=== PATIENT | female | born 1990 | race Caucasian/White ===

== ENCOUNTER 2018-04-11 09:26 | Emergency (ER) | payer OTHER ==
[2018-04-11 10:33] VITALS: BP 140/85
--- NOTE | 2018-04-11 10:36 | UC ---
Respiratory Complaint HPI - HPI Summary HPI Summary: ONSET YESTERDAY OF NASAL CONGESTION, SINUS PRESSURE, MILD SORE THROAT. SAW A WHITE SPOT ON HER RIGHT TONSIL. THROAT FEELS SWOLLEN. DENIES FEVER, NAUSEA/ VOMITING. NO HEADACHE OR VISUAL DISTURBANCES. IS CONCERNED ABOUT STREP. PATIENT IS 38 WEEKS . - History of Current Complaint Chief Complaint: UCGeneralIllness Stated Complaint: SORE THROAT HEADACHE SINUS ISSUE Time Seen by Provider: 04/11/18 10:20 Hx Obtained From: Patient Onset/Duration: Gradual Onset, Lasting Days - 1 DAY, Still Present Timing: Constant Severity Initially: Moderate Severity Currently: Moderate Pain Intensity: 2 Pain Scale Used: 0-10 Numeric Character: Cough: Nonproductive Aggravating Factors: Nothing Alleviating Factors: Nothing Associated Signs And Symptoms: Positive: URI, Nasal Congestion. Negative: Dyspnea, Fever - Allergies/Home Medications Allergies/Adverse Reactions: Allergies Allergy/AdvReac Type Severity Reaction Status Date / Time No Known Allergies Allergy Verified 04/11/18 09:35 Home Medications: Home Medications Escitalopram Oxalate [Lexapro 10 mg] 10 mg PO DAILY 04/11/18 [History Confirmed 04/11/18] PMH/Surg Hx/FS Hx/Imm Hx Previously Healthy: Yes - Surgical History Surgical History: Yes Surgery Procedure, Year, and Place: 2008 . 1998 eustachian tubes - Family History Known Family History: Negative: Hypertension - Social History Alcohol Use: None Substance Use Type: None Smoking Status (MU): Never Smoked Tobacco Review of Systems Constitutional: Fatigue ENT: Sore Throat, Nasal Discharge Respiratory: Cough Cardiovascular: Negative Gastrointestinal: Negative Genitourinary: Negative Neurological: Negative All Other Systems Reviewed And Are Negative: Yes Physical Exam Triage Information Reviewed: Yes Appearance: Well-Appearing, No Pain Distress, Well-Nourished Vital Signs: Initial Vital Signs Temp 97.5 F 04/11/18 09:36 Pulse 95 04/11/18 09:36 Resp 16 04/11/18 09:36 BP 149/76 04/11/18 09:36 Pulse Ox 100 04/11/18 09:36 Laboratory Tests 04/11/18 10:10 Group A Strep Rapid Negative Laboratory Tests 04/11/18 04/11/18 10:10 10:41 POC Urine Color Yellow POC Urine Clarity Clear POC Urine pH 7.0 POC Ur Specif Amistad 1.020 POC Urine Protein Negative POC Ur Glucose (UA) Negative POC Urine Ketones Negative POC Urine Blood Trace-intact A POC Urine Nitrite Negative POC Urine Bilirubin Negative POC Urine Urobilinogen 0.2 POC U Leukocyte Esteras Negative Group A Strep Rapid Negative Vital Signs Reviewed: Yes Eyes: Positive: Conjunctiva Clear ENT: Positive: Hearing grossly normal, Pharynx normal, TMs normal, Other - TONSIL STONE RIGHT TONSIL Neck: Positive: Supple, Nontender, No Lymphadenopathy Respiratory Exam: Normal Cardiovascular Exam: Normal Abdomen Description: Positive: Soft, Other: - GRAVID Musculoskeletal: Positive: No Edema Neurological: Positive: Alert Psychological: Positive: Age Appropriate Behavior Skin: Negative: rashes UC Diagnostic Evaluation - Laboratory O2 Sat by Pulse Oximetry: 100 Respiratory Course/Dx - Course Course Of Treatment: BP 149/76, REPEAT 140/85. PT DENIES H/O HTN IN . NO ALLEN, VISUAL DISTURBANCES OR INCREASED LEG EDEMA. TRACE BLOOD IN URINE DIP. NO PROTEIN. I SPOKE WITH DR. KUO. SHARI WITH CLOSE OB FOLLOW-UP - PT HAS APPT IN 4 DAYS. ADVISED TO GO TO ED WITHOUT FAIL IF SHE DEVELOPS WORSENING ALLEN, SWELLING, VISUAL DISTURBANCES OR ANY OTHER CONCERNING SX. - Differential Dx/Diagnosis Provider Diagnoses: ACUTE URI Discharge - Sign-Out/Discharge Documenting (check all that apply): Patient Departure All imaging exams completed and their final reports reviewed: No Studies - Discharge Plan Condition: Stable Disposition: HOME Patient Education Materials: Upper Respiratory Infection (ED) Referrals: [facility] [Provider Group] (KEEP YOUR APPT IN 4 DAYS) No Primary Care Phys,[facility] [Primary Care Provider] - Additional Instructions: STREP TEST NEGATIVE. YOUR SYMPTOMS ARE LIKELY VIRALLY MEDIATED AND SHOULD RESOLVE ON THEIR OWN WITH TIME. NO INDICATION FOR ANTIBIOTICS AT PRESENT. REST, HYDRATE, TYLENOL NEEDED. KEEP YOUR OB APPT ON SATURDAY. YOUR BLOOD PRESSURE WAS SLIGHTLY ELEVATED TODAY. 149/76 AND 140/85. URINE WITH JUST A TRACE AMOUNT OF BLOOD. GO TO THE ED WITHOUT FAIL IF YOU DEVELOP WORSENING HEADACHE, VISUAL DISTURBANCES, INCREASED LEG SWELLING, CONTRACTIONS, BABY STOPS MOVING OR ANY OTHER CONCERNING SYMPTOMS. - Billing Disposition and Condition Condition: STABLE Disposition: Home
== END 2018-04-11 11:10 | disposition home or self-care (01) ==
LOC: UCEAST 09:26
DX: J06.9 Acute upper respiratory infection, unspecified (principal)
CPT/HCPCS: 81003; 87651; 99211; G0463

== ENCOUNTER 2018-04-25 07:02 | Inpatient (IN) | payer OTHER ==
[~2018-04-25 07:02] MED LIST: Sodium Citrate/Citric Acid* 15 ML UDC PO SCH
[2018-04-25] MEDS ORDERED: ceFOXitin 2 GM IVPREMIX* 2 GM/50 ML BAG ONE (08:22)
[2018-04-25] MEDS ORDERED: Bupivacaine-MPF SPINAL* 7.5 MG/ML - 2ML AMP ONE (08:36)
[2018-04-25] MEDS ORDERED: Morphine PF AMP (0.5MG/ML)* 5 MG/10 ML AMP ONE (08:36)
[2018-04-25] MEDS ORDERED: EPHEDrine (Pressors)* 50 MG/ML VIAL ONE (08:58)
[2018-04-25] MEDS ORDERED: Glycopyrrolate IV* 0.2 MG/ML 1 ML VIAL ONE (08:58)
[2018-04-25] MEDS ORDERED: DiMENhydriNATE IV* 50 MG/ML VIAL IV PUSH PRN ×2 (09:21→09:23)
[2018-04-25] MEDS ORDERED: fentaNYL* 50 MCG/ML 2 ML VIAL (100 MCG VIAL) IV PRN (09:21)
[2018-04-25] MEDS ORDERED: Ondansetron INJ* 2 MG/ML VIAL IV PRN ×2 (09:21→09:23)
[2018-04-25] MEDS ORDERED: Naloxone* 0.4 MG/ML 1 ML VIAL IV PRN ×2 (09:21→09:23)
[2018-04-25] MEDS ORDERED: Scopolamine 1.5 mg* PATCH TRANSDERM PRN (09:23)
[2018-04-25] MEDS ORDERED: diPHENhydraMINE IV* 50 MG/ML 1 ml VIAL (BENADRYL) IV PRN (09:23)
[2018-04-25] MEDS ORDERED: oxyCODONE/Acetamin 5/325 MG* TAB PO PRN (09:23)
[2018-04-25] MEDS ORDERED: Nalbuphine* 10 MG/ML 1 ML VIAL IV PRN (09:23)
[2018-04-25] MEDS ORDERED: Ketorolac INJ* 30 MG/ML 1 ML VIAL ONE (09:26)
[2018-04-25] MEDS ORDERED: Oxytocin in LR* 0 UNITS/0 ML BAG IVPB ONE (10:24)
[2018-04-25] MEDS: Ketorolac INJ* 30 MG/ML 1 ML VIAL IV PRN ×2 (15:38→21:43)
[2018-04-25] MEDS ORDERED: Acetaminophen TAB* 325 MG PO PRN (20:45)
[2018-04-25] MEDS ORDERED: Witch Hazel PAD* JAR TOPICAL PRN (20:45)
[2018-04-25] MEDS: Simethicone TAB* 80 MG TAB.CHEW PO SCH (21:44)
[2018-04-25] MEDS: Docusate CAP* 100 MG PO SCH (21:44)
[2018-04-26] MEDS ORDERED: oxyCODONE/Acetamin 5/325 MG* TAB PO PRN (00:30)
[2018-04-26] MEDS: Ketorolac INJ* 30 MG/ML 1 ML VIAL IV PRN (03:37)
[2018-04-26 07:31] LABS: ABS Basophils 0 10^3/ul (0-0.2); ABS Eosinophils 0.1 10^3/ul (0-0.6); ABS Lymphocytes 1.6 10^3/ul (1.0-4.8); ABS Monocytes 0.6 10^3/ul (0-0.8); ABS Neutrophils 6.4 10^3/ul (1.5-7.7); ABS Nucleated RBC 0 10^3/ul; Eosinophil % 0.9 % (0-6); Hematocrit 29 % (35-47); Hemoglobin 9.6 g/dl (12.0-16.0); Lymphocyte % 18.4 % (25-47); Mean Corpuscular HGB Conc 33 g/dl (31-36); Mean Corpuscular Hemoglobin 25 pg (27-31); Mean Corpuscular Volume 76 fL (80-97); Mean Platelet Volume 8.7 um3 (7.4-10.4); Nucleated Red Blood Cells % 0; Platelet Count 155 10^3/ul (150-450); Red Blood Count 3.85 10^6/ul (4.00-5.40); Red Cell Distribution Width 14 % (10.5-15); White Blood Count 8.7 10^3/ul (3.5-10.8)
[2018-04-26] MEDS: Citalopram TAB* 20 MG PO SCH (08:32)
[2018-04-26] MEDS: Docusate CAP* 100 MG PO SCH ×3 (08:32→21:13)
[2018-04-26] MEDS: Simethicone TAB* 80 MG TAB.CHEW PO SCH ×4 (08:32→21:14)
[2018-04-26] MEDS: Ferrous Gluconate TAB* 324 MG TAB PO SCH ×2 (08:32→21:13)
[2018-04-26] MEDS ORDERED: Escitalopram (NF) 10 MG TAB PO SCH (09:00)
[2018-04-26] MEDS: Ibuprofen TAB* 600 MG PO PRN ×2 (11:42→18:45)
--- NOTE | 2018-04-26 12:18 | OP ---
DATE OF OPERATION: 04/25/18 - ROOM #115 DATE OF : 89 SURGEON: Annalee Soria MD ANIMAL CARE TECHNICIAN: Dr. Petty. ANESTHESIOLOGIST: Dr. Rogers. ANESTHESIA: Spinal. PRE-OP DIAGNOSIS: 40 weeks' gestation with history of previous section and morbid obesity. POST-OP DIAGNOSIS: 40 weeks' gestation with history of previous section and morbid obesity. OPERATIVE PROCEDURE: Repeat low transverse section with vacuum assist. MATERIAL TO LAB: Cord blood. ESTIMATED BLOOD LOSS: 800 mL. URINE OUTPUT: 100 mL. IV FLUIDS: 2650 mL lactated Ringer's. INDICATIONS: This patient was a 28-year-old, 3, para 1, at 40 weeks' gestation who presented today for her repeat section. The patient had a history of one prior section and had initially hoped to have a trial of labor, but did not want to continue her after today. She was extensively counseled for the procedure and consent was signed. FINDINGS: Normal-appearing uterus, fallopian tubes, and ovaries. Delivery was productive of a 9 pound 1 ounce female infant, with Apgars of 9 and 9. Time of delivery was 0913. COMPLICATIONS: None. DESCRIPTION OF PROCEDURE: The risks, benefits, and alternatives were described to the patient, and informed consent was obtained. The patient was taken to the operating room with IV running, where spinal anesthesia was induced and found to be adequate. The patient was prepped and draped in the normal sterile fashion in the dorsal supine position with a leftward tilt. A Pfannenstiel skin incision was made with a scalpel through the patient's previous incision. This was carried down to the underlying fascia using the scalpel. The fascia was scored in the midline, and the incision was extended using Fowler scissors. The fascia was dissected off the underlying rectus muscles using blunt and sharp dissection. The rectus muscles were in the midline using dissection with a Jaqueline clamp. The peritoneum was then entered bluntly. A bladder blade was placed. A bladder flap was created sharply using Metzenbaum scissors. A low transverse uterine incision was then made with the scalpel. This was carried down to the amniotic membranes. The membranes were then ruptured, productive of clear fluid. The uterine incision was extended using blunt traction. The head was elevated to the level of the incision, but the head could not be delivered, largely due to the large habitus preventing sufficient fundal pressure. A Kiwi vacuum was placed on the apex of the head and with gentle traction, the head delivered without difficulty. The shoulders then were also both delivered and the body followed. The had excellent tone and cried immediately on delivery. The cord was doubly clamped and cut. The infant was then handed to the awaiting bushel girl. Cord blood was collected. The placenta was delivered with manual extraction. The uterus was then exteriorized and cleared of all clots and debris. The uterine incision was then reapproximated using 0 Polysorb in a running-locked fashion. A second layer of imbricating 0 Polysorb sutures was then also placed for good hemostasis. The posterior cul-de-sac was irrigated with saline. The uterus was then returned to the abdomen. The incision was reinspected and still noted to be hemostatic. The peritoneum was closed with 3-0 Polysorb in a running fashion. The fascia was closed with 0 Polysorb in a running fashion. The subcutaneous tissues were copiously irrigated and made hemostatic using the Bovie. The subcutaneous tissues were then reapproximated using 3-0 Vicryl in interrupted sutures. The skin was then closed with 4-0 Monocryl in a subcuticular stitch. This was overlaid with Mastisol and steristrips. A sterile bandage was then placed over the incision. The patient tolerated the procedure well. Sponge, lap, and needle counts were correct x2. [id number]/[facility] #: [id number] LEX
[2018-04-26] MEDS: oxyCODONE/Acetamin 5/325 MG* TAB PO PRN (16:15)
[2018-04-27] MEDS: Ibuprofen TAB* 600 MG PO PRN ×3 (04:12→16:47)
[2018-04-27] MEDS: Simethicone TAB* 80 MG TAB.CHEW PO SCH ×4 (09:00→20:17)
[2018-04-27] MEDS: Docusate CAP* 100 MG PO SCH ×3 (09:00→20:17)
[2018-04-27] MEDS: Ferrous Gluconate TAB* 324 MG TAB PO SCH ×2 (09:00→20:17)
[2018-04-27] MEDS: Citalopram TAB* 20 MG PO SCH (10:15)
[2018-04-27] MEDS: oxyCODONE/Acetamin 5/325 MG* TAB PO PRN ×2 (13:37→20:19)
[2018-04-28] MEDS: oxyCODONE/Acetamin 5/325 MG* TAB PO PRN ×2 (02:39→08:17)
[2018-04-28] MEDS: Ibuprofen TAB* 600 MG PO PRN ×2 (02:39→08:17)
[2018-04-28 08:13] VITALS: BP 141/70
[2018-04-28] MEDS: Ferrous Gluconate TAB* 324 MG TAB PO SCH (08:17)
[2018-04-28] MEDS: Docusate CAP* 100 MG PO SCH (08:17)
[2018-04-28] MEDS: Citalopram TAB* 20 MG PO SCH (08:17)
[2018-04-28] MEDS: Simethicone TAB* 80 MG TAB.CHEW PO SCH (08:17)
[2018-04-28] MEDS ORDERED: Scopolamine PATCH Remove* 1 NOTE MISC PATCH OFF PRN (09:24)
== END 2018-04-28 12:24 | disposition home or self-care (01) | DRG 540 ==
LOC: MCHOB 07:02
PROVIDERS: ADMIT Obstetrics & Gynecology; ATTEND Obstetrics & Gynecology
PROC: 10D00Z1 Extraction of Products of Conception, Low, Open Approach (ICD-10-PCS; principal; 2018-04-25 08:45)
DX: O34.211 Maternal care for low transverse scar from previous cesarean delivery (principal); Z68.41 Body mass index [BMI] 40.0-44.9, adult; O48.0 Post-term pregnancy; O99.214 Obesity complicating childbirth; E66.01 Morbid (severe) obesity due to excess calories; O69.89X0 Labor and delivery complicated by other cord complications, not applicable or unspecified; O90.81 Anemia of the puerperium; D64.9 Anemia, unspecified; Z37.0 Single live birth; Z3A.40 40 weeks gestation of pregnancy
CPT/HCPCS: 36415; 85025; A9270-GY; J0694; J1885